=== PATIENT | female | born 1980 ===

== ENCOUNTER 2024-03-18 07:04 | Day surgery (SDC) | payer OTHER ==
[2024-02-25 07:53] LABS: HEMATOCRIT 42.4 % (36.0-45.00); HEMOGLOBIN 14.2 g/dL (12.0-15.00); MEAN CELL VOLUME 93.7 fL (80.00-100.00); MEAN CORPUSCULAR HEMOGLOBIN 31.4 pg (27.00-32.0); MEAN CORPUSCULAR HGB CONC 33.5 g/dl (32.0-36.0); PLATELET COUNT 272 K/uL (150-450); RED BLOOD COUNT 4.52 M/uL (4.00-6.00); RED CELL DISTRIBUTION WIDTH 13.5 % (11.5-14.5)
[2024-02-25 08:07] LABS: PH,URINE 7.5 (5.0-8.0); URINE APPEARANCE Clear; URINE BILIRRUBIN Negative (NEGATIVE); URINE BLOOD Negative; URINE COLOR Yellow; URINE GLUCOSE Negative (NEGATIVE); URINE KETONE Negative (NEGATIVE); URINE LEUKOCYTE Negative; URINE NITRATE Negative; URINE PROTEIN Negative (NEGATIVE); URINE UROBILINOGEN 0.2 E.U./dl
[2024-02-25 08:10] LABS: URINE BACTERIA 1036.4 uL (0.0-1933); URINE EPITHELIAL CELLS 10.2 uL (0.0-38.8); URINE RBC 33.7 uL (0.0-20.8); URINE WBC 3.9 uL (0.0-23.2)
[2024-02-25 08:23] VITALS: BP 123/85
[2024-02-25 08:32] LABS: INR 0.97; PARTIAL THROMBOPLASTIN TIME 32.2 SECONDS (22.0-34.0); PROTHROMBIN TIME 10.6 SECONDS (9.0-11.5)
[2024-02-25 08:35] LABS: URINE CAST 0.29 uL (0.0-1.40)
[2024-02-25 08:57] LABS: ALBUMIN 3.8 gm/dL (3.4-5.0); BILIRUBIN TOTAL 0.45 mg/dL (0.3-1.2); CALCIUM 9.1 mg/dL (8.5-10.1); CREATININE SERUM 0.75 mg/dL (0.55-1.02); GFR 83.95; GLOBULINA 3.4 G/DL (2.4-3.5); POTASSIUM 4.27 mEq/L (3.5-5.1); TOTAL PROTEIN 7.2 gm/dL (6.4-8.2)
[~2024-03-18] VITALS: Ht 160 cm; Wt 67.6 kg
[2024-03-18] MEDS ORDERED: CEFAZOLIN SODIUM 1,000 MG VIAL ONE (10:22)
[2024-03-18] MEDS ORDERED: BUPIVACAINE HCL/MPF 0.5% 30ML VIAL ONE (11:47)
[2024-03-18] MEDS ORDERED: KETOROLAC TROMETHAMINE 30 MG VIAL ONE (11:47)
[2024-03-18] MEDS ORDERED: LIDOCAINE HCL 1% 20 ML VIAL IJ ONE (11:48)
[2024-03-18] MEDS ORDERED: MORPHINE SULFATE 4 MG/ML VIAL IV ONE (14:15)
[2024-03-18 16:29] VITALS: BP 127/74; O2SAT 100
== END 2024-03-18 16:00 | disposition home or self-care (01) ==
LOC: CIR.AMB 07:04
PROVIDERS: ATTEND Orthopaedic Surgery
DX: M24.821 Other specific joint derangements of right elbow, not elsewhere classified (principal); M66.231 Spontaneous rupture of extensor tendons, right forearm; H52.4 Presbyopia